=== PATIENT | male | born 1945 | race Two or more races ===

== ENCOUNTER → 2023-08-03 | Outpatient (CLI) | payer OTHER ==
[2023-08-03 09:56] LABS: Basophils # (auto) 0.1 10 ^3/uL (0-0.2); Eosinophils # (auto) 0.1 10 ^3/uL (0-0.8); Eosinophils % (auto) 1.5 % (0.0-7.0); Hematocrit 43.8 % (41.0-53.0); Hemoglobin 14.8 g/dL (13.5-17.5); Lymphocytes # (auto) 1.5 10 ^3/uL (0.4-5.4); Lymphocytes % (auto) 24.6 % (10.0-50.0); Mean Corpuscular Hemoglobin 29.2 pg (28.0-32.0); Mean Corpuscular Hgb Conc. 33.8 g/dL (32.0-36.0); Mean Corpuscular Volume 86.2 fL (80.0-100.0); Monocytes # (auto) 0.3 10 ^3/uL (0-1.3); Monocytes % (auto) 5.9 % (0.0-12.0); Nucleated Red Blood Cells % 0.1 %; Red Blood Cells 5.08 10^6/uL (4.5-5.90); Red Cell Distribution Width 13.3 % (11.8-14.3); White Blood Cell 5.9 10^3/uL (4.4-10.8)
[2023-08-03 10:17] LABS: Urine Bacteria NONE SEEN /hpf (None Seen); Urine Blood Negative /uL (Negative); Urine Clarity Clear (Clear); Urine Color Colorless (Yellow); Urine Protein, UAD 1+ (Negative); Urine Specific Gravity 1.032 (1.001-1.035); Urine Urobilinogen Normal (Negative); Urine WBC 20 /hpf (0 - 3)
[2023-08-03 11:21] LABS: Prostate Specific Antigen 0.78 ng/mL (0.0-4.0)
[2023-08-03 11:25] LABS: Folate (Folic Acid) 17.22 ng/mL (>5.38)
[2023-08-03 11:58] LABS: Alanine Aminotransferase 16 U/L (7-40); Albumin 4.2 g/dL (3.2-4.8); Alkaline Phosphatase 142 U/L (46-116); Anion Gap 9 (5-15); Aspartate Aminotransferase 11 U/L (13-40); BUN/Creatinine Ratio 12.4 (10.0-20.0); Blood Urea Nitrogen 14 mg/dL (9-23); Calcium 8.9 mg/dL (8.7-10.4); Carbon Dioxide 24 mmol/L (20-30); Chloride 99 mmol/L (98-107); Magnesium 1.8 mg/dL (1.6-2.6); Potassium 4.3 mmol/L (3.5-5.1); Sodium 132 mmol/L (136-145); Uric Acid 4.6 mg/dL (3.7-9.2)
[2023-08-03 11:59] LABS: Bilirubin, Total 1.4 mg/dL (0.2-1.0); Total Protein 7.2 g/dL (5.7-8.2)
[2023-08-03 13:19] LABS: Glucose 456 mg/dL (74-106)
[2023-08-03 13:52] LABS: LDL Cholesterol 113 mg/dL (< 100); Triglycerides 301 mg/dL (< 150)
[2023-08-03 13:54] LABS: Cholesterol 188 mg/dL (< 200); HDL Cholesterol 32 mg/dL (40-59)
== END | disposition home or self-care (01) ==
LOC: LAB 09:39
PROVIDERS: ATTEND Internal Medicine
DX: E61.2 Magnesium deficiency (principal); R78.89 Finding of other specified substances, not normally found in blood; R68.89 Other general symptoms and signs; R82.90 Unspecified abnormal findings in urine; R82.79 Other abnormal findings on microbiological examination of urine; D51.9 Vitamin B12 deficiency anemia, unspecified; R82.991 Hypocitraturia; E85.9 Amyloidosis, unspecified; E79.0 Hyperuricemia without signs of inflammatory arthritis and tophaceous disease; R94.6 Abnormal results of thyroid function studies
CPT/HCPCS: 36415; 80053; 80061; 81001; 82306; 82607; 82746; 83036; 83735; 84153; 84443; 84550; 85025; 87086

== ENCOUNTER → 2023-11-24 | Outpatient (CLI) | payer OTHER ==
[~2023-11-24] MED LIST: AMLO1TAB22 PO; METF-372 PO; OME20T PO; TRAZ-228 PO
[2023-11-24 09:21] LABS: Urine Bacteria None Seen /hpf (None Seen)
[2023-11-24 09:25] LABS: Basophils # (auto) 0 10 ^3/uL (0-0.2); Basophils % (auto) 0.7 % (0.0-2.0); Eosinophils # (auto) 0.1 10 ^3/uL (0-0.8); Eosinophils % (auto) 2.2 % (0.0-7.0); Hemoglobin 13.5 g/dL (13.5-17.5); Lymphocytes # (auto) 1.6 10 ^3/uL (0.4-5.4); Lymphocytes % (auto) 24.9 % (10.0-50.0); Mean Corpuscular Hemoglobin 29.1 pg (28.0-32.0); Mean Corpuscular Hgb Conc. 33.8 g/dL (32.0-36.0); Mean Corpuscular Volume 86.3 fL (80.0-100.0); Monocytes # (auto) 0.4 10 ^3/uL (0-1.3); Monocytes % (auto) 6.6 % (0.0-12.0); Neutrophils # (auto) 4.2 10 ^3/uL (1.6-8.6); Neutrophils % (auto) 65.6 % (37.0-80.0); Nucleated Red Blood Cells % 0.1 %; Red Blood Cells 4.64 10^6/uL (4.5-5.90); Red Cell Distribution Width 14.3 % (11.8-14.3); White Blood Cell 6.4 10^3/uL (4.4-10.8)
[2023-11-24 09:35] LABS: Urine Blood Negative /uL (Negative); Urine Clarity Clear (Clear); Urine Color Light-Yellow (Yellow); Urine Protein, UAD 1+ (Negative); Urine Specific Gravity 1.014 (1.001-1.035); Urine Urobilinogen Normal (Negative); Urine WBC <1 /hpf (0 - 3)
[2023-11-24 10:14] LABS: Alanine Aminotransferase 13 U/L (7-40); Albumin 4.1 g/dL (3.2-4.8); Alkaline Phosphatase 73 U/L (46-116); Anion Gap 6 (5-15); Aspartate Aminotransferase 19 U/L (13-40); BUN/Creatinine Ratio 15.1 (10.0-20.0); Blood Urea Nitrogen 14 mg/dL (9-23); Calcium 9.4 mg/dL (8.5-10.1); Carbon Dioxide 28 mmol/L (20-30); Chloride 105 mmol/L (98-107); Cholesterol 164 mg/dL (< 200); Glucose 202 mg/dL (74-106); HDL Cholesterol 36 mg/dL (40-59); LDL Cholesterol 102 mg/dL (< 100); Potassium 4.3 mmol/L (3.5-5.1); Sodium 139 mmol/L (136-145); Triglycerides 180 mg/dL (< 150)
[2023-11-24 10:15] LABS: Bilirubin, Total 1.1 mg/dL (0.2-1.0); Total Protein 6.9 g/dL (5.7-8.2)
[2023-11-24 11:02] LABS: Magnesium 1.6 mg/dL (1.6-2.6)
[2023-11-24 11:42] LABS: Folate (Folic Acid) 17.28 ng/mL (>5.38)
== END | disposition home or self-care (01) ==
LOC: LAB 09:09
PROVIDERS: ATTEND Internal Medicine
DX: E79.0 Hyperuricemia without signs of inflammatory arthritis and tophaceous disease (principal); R82.90 Unspecified abnormal findings in urine; D51.9 Vitamin B12 deficiency anemia, unspecified; R82.79 Other abnormal findings on microbiological examination of urine; E55.9 Vitamin D deficiency, unspecified; R94.6 Abnormal results of thyroid function studies; E61.2 Magnesium deficiency; R73.09 Other abnormal glucose; R68.89 Other general symptoms and signs; E78.5 Hyperlipidemia, unspecified
CPT/HCPCS: 36415; 80053; 80061; 81001; 82607; 82746; 83036; 83735; 84443; 84550; 85025; 87086

== ENCOUNTER → 2024-01-06 | Outpatient (CLI) | payer OTHER ==
[2024-01-06 09:36] LABS: Folate (Folic Acid) 17.49 ng/mL (>5.38)
[2024-01-06 09:37] LABS: Alanine Aminotransferase 19 U/L (7-40); Albumin 4.3 g/dL (3.2-4.8); Alkaline Phosphatase 77 U/L (46-116); Anion Gap 3 (5-15); Aspartate Aminotransferase 14 U/L (13-40); Bilirubin, Total 1.3 mg/dL (0.2-1.0); Blood Urea Nitrogen 20 mg/dL (9-23); Calcium 9.7 mg/dL (8.5-10.1); Carbon Dioxide 35 mmol/L (20-30); Chloride 104 mmol/L (98-107); Cholesterol 166 mg/dL (< 200); Glucose 86 mg/dL (74-106); HDL Cholesterol 38 mg/dL (40-59); LDL Cholesterol 115 mg/dL (< 100); Potassium 3.5 mmol/L (3.5-5.1); Sodium 142 mmol/L (136-145); Triglycerides 153 mg/dL (< 150)
[2024-01-06 11:14] LABS: Uric Acid 6.8 mg/dL (3.7-9.2)
== END | disposition home or self-care (01) ==
LOC: LAB 08:44
PROVIDERS: ATTEND Internal Medicine
DX: I12.9 Hypertensive chronic kidney disease with stage 1 through stage 4 chronic kidney disease, or unspecified chronic kidney disease (principal); E11.22 Type 2 diabetes mellitus with diabetic chronic kidney disease; N18.30 Chronic kidney disease, stage 3 unspecified; E11.65 Type 2 diabetes mellitus with hyperglycemia
CPT/HCPCS: 36415; 80053; 80061; 82306; 82607; 82746; 83036; 84443; 84550

== ENCOUNTER → 2024-08-19 | Outpatient (CLI) | payer OTHER ==
[2024-08-19 08:21] LABS: Urine Bacteria None Seen /hpf (None Seen)
[2024-08-19 08:40] LABS: Basophils # (auto) 0 10 ^3/uL (0-0.2); Basophils % (auto) 0.5 % (0.0-2.0); Eosinophils # (auto) 0.1 10 ^3/uL (0-0.8); Eosinophils % (auto) 1.2 % (0.0-7.0); Hematocrit 40.1 % (41.0-53.0); Lymphocytes # (auto) 1.7 10 ^3/uL (0.4-5.4); Lymphocytes % (auto) 24.3 % (10.0-50.0); Mean Corpuscular Hemoglobin 29.8 pg (28.0-32.0); Mean Corpuscular Hgb Conc. 34.9 g/dL (32.0-36.0); Mean Corpuscular Volume 85.3 fL (80.0-100.0); Monocytes # (auto) 0.5 10 ^3/uL (0-1.3); Monocytes % (auto) 7.3 % (0.0-12.0); Neutrophils # (auto) 4.6 10 ^3/uL (1.6-8.6); Neutrophils % (auto) 66.7 % (37.0-80.0); Nucleated Red Blood Cells % 0.1 %; Platelet Count (auto) 176 10^3/uL (140-450); Red Blood Cells 4.71 10^6/uL (4.5-5.90); Red Cell Distribution Width 13.6 % (11.8-14.3); White Blood Cell 6.8 10^3/uL (4.4-10.8)
[2024-08-19 08:47] LABS: Urine Blood Negative /uL (Negative); Urine Clarity Clear (Clear); Urine Color Light-Yellow (Yellow); Urine Protein, UAD 1+ (Negative); Urine Specific Gravity 1.013 (1.001-1.035); Urine Squamous Epithelial Cell FEW /hpf (<5); Urine Urobilinogen Normal (Negative); Urine WBC < 1 /HPF (0-3); Urine pH 7.5 (5.0-9.0)
[2024-08-19 09:32] LABS: Triglycerides 149 mg/dL (< 150)
[2024-08-19 09:34] LABS: Cholesterol 166 mg/dL (< 200); HDL Cholesterol 37 mg/dL (40-59); LDL Cholesterol 110 mg/dL (< 100)
[2024-08-19 10:27] LABS: T3 Total 1.32 ng/mL (0.60-1.81)
[2024-08-19 10:28] LABS: Folate (Folic Acid) 11.83 ng/mL (>5.38)
[2024-08-22 09:02] LABS: Hepatitis B Surface Antigen Negative (Negative)
[2024-08-22 09:19] LABS: Hepatitis A Ab IgM Negative; Hepatitis B Core IgM Negative (Negative); Hepatitis C Antibody Negative (Negative)
== END | disposition home or self-care (01) ==
LOC: LAB 08:03
PROVIDERS: ATTEND Internal Medicine
DX: E61.2 Magnesium deficiency (principal); D51.9 Vitamin B12 deficiency anemia, unspecified; E55.9 Vitamin D deficiency, unspecified; E78.49 Other hyperlipidemia; E79.0 Hyperuricemia without signs of inflammatory arthritis and tophaceous disease; R73.09 Other abnormal glucose; R68.89 Other general symptoms and signs; R94.6 Abnormal results of thyroid function studies; R82.90 Unspecified abnormal findings in urine; R82.998 Other abnormal findings in urine; R53.1 Weakness
CPT/HCPCS: 36415; 80061; 80074; 81001; 82306; 82607; 82746; 83036; 84480; 85025; 87086

== ENCOUNTER 2025-03-02 16:48 | Inpatient (IN) | payer OTHER ==
[~2025-03-02] VITALS: Ht 177.8 cm; Wt 84.5 kg
--- NOTE | 2025-03-02 17:17 | ED.PDOC ---
HPI Comments 80y M who presents to the ED via EMS for chief complaint of chest pain. Per EMS, pt is resident at [facility], where facility and staff called after pt stated he has been having chest pain for the past hour and EMS was called to the scene. EMS arrived and pt states he has been having L sided chest pain, radiating to the back, with noted exacerbation of pain with swallowing and no relieving factors. EMS states pt had vitals checked and noted pt BP was fluctuating from systolic values from 180's to 70's, with all other vitals in normal range. Arrival to ED, patient denies any chest pain and states he is now feeling better. He denies feeling short of breath, nausea, vomiting, diaphoresis or edema. Pt son arrived to the ED and stated the facility had contacted him earlier today advising him that the patient's blood glucose was running high. Pt in the ED, has noted BP of 187/69, heart rate 108 but otherwise stable vitals with temp of 98.2 F, rr 15 and 02 sat of 97% on room air. Pt has noted history of HTN and DM with noted ED accu check of 305. Pt otherwise de nies any other symptoms at this time. 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 Allergies: Coded Allergies: NO KNOWN ALLERGIES (Unverified , 11/01/23) Home Meds Reported Medications Amlodipine Besylate (Amlodipine Besylate) 5 Mg Tab, 1 TAB PO DAILY, #30 TAB 5 Refills 11/01/23 Trazodone Hcl (Trazodone Hcl) 100 Mg Tab, 1 TAB PO QPM, #30 TAB 1 Refill 11/01/23 Omeprazole (Omeprazole) 20 Mg Cap, 20 MG PO, CAP 11/01/23 Metformin Hydrochloride (Metformin Hcl) 1,000 Mg Tab, 1 TAB PO BID, #60 TAB 5 Refills 11/01/23 Information Source: Patient, Emergency Med Personnel Mode of Arrival: EMS Brought in by: EMS Past Medical History PAST MEDICAL HISTORY: Dementia, DM, HTN Family History Family History: Family hx of Cancer Social History Smoker: Non-Smoker Alcohol: Denies ETOH Use Drugs: Denies Drug Use Lives In: Home Constitutional: denies: chills, diaphoresis, fatigue, fever, malaise, sweats, weakness, others EENTM: denies: blurred vision, double vision, ear bleeding, ear discharge, ear drainage, ear pain, ear ringing, eye pain, eye redness, hearing loss, mouth pain, mouth swelling, nasal discharge, nose bleeding, nose congestion, nose pain, photophobia, tearing, throat pain, throat swelling, voice changes, others Respiratory: denies: cough, hemoptysis, orthopnea, SOB at rest, shortness of breath, SOB with excertion, stridor, wheezing, others Cardiovascular: reports: chest pain; denies: dizzy spells, diaphoresis, Dyspnea on exertion, edema, irregular heart beat, left arm pain, lightheadedness, palpitations, PND, syncope, others Gastrointestinal: denies: abdomen distended, abdominal pain, blood streaked bowels, constipated, diarrhea, dysphagia, difficulty swallowing, hematemesis, melena, nausea, poor appetite, poor fluid intake, rectal bleeding, rectal pain, vomiting, others Genitourinary: denies: burning, dysuria, flank pain, frequency, hematuria, incontinence, penile discharge, penile sore, pain, testicle pain, testicle swelling, urgency, others Neurological: denies: dizziness, fainting, headache, left sided numbness, left sided weakness, numbness, paresthesia, pre-existing deficit, right sided numbness, right sided weakness, seizure, speech problems, tingling, tremors, weakness, others Musculoskeletal: denies: back pain, gout, joint pain, joint swelling, muscle pain, muscle stiffness, neck pain, others Integumetry: denies: bruises, change in color, change in hair/nails, dryness, laceration, lesions, lumps, rash, wounds, others Allergic/Immunocompromised: denies: Difficulty Healing, Frequent Infections, Hives, Itching, others Hematologic/Lymphatic: denies: anemia, blood clots, easy bleeding, easy bruising, swollen glands, others Endocrine: denies: excessive hunger, excessive sweating, excessive thirst, excessive urination, flushing, intolerance to cold, intolerance to heat, unexplained weight gain, unexplained weight loss, others Psychiatric: denies: anxiety, bipolar disorder, depression, hopeless, panic disorder, schizophrenia, sleepless, suicidal, others All Other Systems: Reviewed and Negative Physical Exam General Appearance: No Apparent Distress HEENT: Other (Pupils and face symmetric. Moist mucous membranes.) Neck: Full Range of Motion, Normal Inspection Respiratory: Lungs Clear, No Accessory Muscle Use, No Respiratory Distress, Normal Breath Sounds Cardiovascular: No Edema, No JVD, Tachycardia Breast Exam: Deferred Gastrointestinal: Non Tender, Soft Genitalia: Deferred Pelvic: Deferred Rectal: Deferred Extremities: Normal inspection, Normal range of motion, Non-tender, No pedal edema Neurologic: Alert (Oriented x3), Normal Affect, Normal Mood, Other (No gross focal deficit) Cerebellar Function: NOT DONE Reflexes: NOT DONE Skin: Dry, Normal Color, Warm Lymphatic: NOT DONE EKG EKG : Comments Sinus tach, rate 102, normal intervals, left axis deviation, possible old inferior or anteroseptal infarct, baseline artifact vs nonspecific T change. Was a procedure done? Was a procedure done?: No CP Differential Dx Differential Diagnosis: Angina, Anxiety / Panic Attack, Electrolyte Disorder, Heart Failure, UT, Pulmonary Embolus Differential Diagnosis: HTN Essential, HTN Accelerated Differential Diagnosis: Aortic dissection, Chest Wall Pain, Esophageal reflux/spasm, Gastritis, Pericarditis, Pneumonia X-Ray, Labs, Meds, VS Vital Signs Date Time Temp Pulse Resp B/P (MAP) Pulse Ox O2 Delivery O2 Flow Rate FiO2 03/02/25 21:31 97.8 86 16 147/86 (106) 95 97.8 03/02/25 18:19 106 15 97 Room Air* 0 21 03/02/25 17:38 141/80 (100) 03/02/25 17:37 141/80 03/02/25 16:58 98.2 108 15 187/69 97 98.2 03/02/25 16:55 102 Lab Test 03/02/25 18:36 03/02/25 17:21 Range/Units Troponin I High Sensitivity 3 L 4 </=54 ng/L White Blood Count 5.9 4.4-10.8 10^3/uL Red Blood Count 4.72 4.5-5.90 10^6/uL Hemoglobin 14.1 13.5-17.5 g/dL Hematocrit 39.7 L 41.0-53.0 % Mean Corpuscular Volume 84.2 80.0-100.0 fL Mean Corpuscular Hemoglobin 29.9 28.0-32.0 pg Mean Corpuscular Hemoglobin Concent 35.5 32.0-36.0 g/dL Red Cell Distribution Width 13.2 11.8-14.3 % Platelet Count 187 140-450 10^3/uL Mean Platelet Volume 7.7 6.9-10.8 fL Neutrophils (%) (Auto) 55.1 37.0-80.0 % Lymphocytes (%) (Auto) 32.7 10.0-50.0 % Monocytes (%) (Auto) 8.4 0.0-12.0 % Eosinophils (%) (Auto) 3.0 0.0-7.0 % Basophils (%) (Auto) 0.8 0.0-2.0 % Neutrophils # (Auto) 3.3 1.6-8.6 10 ^3/uL Lymphocytes # (Auto) 1.9 0.4-5.4 10 ^3/uL Monocytes # (Auto) 0.5 0-1.3 10 ^3/uL Eosinophils # (Auto) 0.2 0-0.8 10 ^3/uL Basophils # (Auto) 0 0-0.2 10 ^3/uL Nucleated Red Blood Cells 0.1 % Sodium Level 137 136-145 mmol/L Potassium Level 3.4 L 3.5-5.1 mmol/L Chloride Level 97 L 98-107 mmol/L Carbon Dioxide Level 30 20-31 mmol/L Anion Gap 10 5-15 Blood Urea Nitrogen 16 9-23 mg/dL Creatinine 1.09 0.700-1.30 mg/dL Glomerular Filtration Rate Calc 69 >90 mL/min BUN/Creatinine Ratio 14.7 10.0-20.0 Serum Glucose 264 H 74-106 mg/dL Calcium Level 9.2 8.7-10.4 mg/dL B-Type Natriuretic Peptide 8.16 0-100 pg/mL [address] [address] Ph: [phone] DIAGNOSTIC IMAGING Diagnostic Imaging Report : [id number] Signed PATIENT: DON PEREIRA ACCT: [id number] UNIT: [id number] : 1945 LOC: ER ROOM / BED: / AGE / SEX: 80 / M ADM STATUS: REG ER SERVICE 1700 ORDERING PHYSICIAN: PRITESH HARPER MD PROCEDURE(s): CXRP - CHEST PORTABLE REASON: cp ORDER NUMBER(s): [id number], ACCESSION NUMBER(s): [id number] CHEST RADIOGRAPH Indication: cp Technique: Single frontal view of the chest was obtained Comparison: None FINDINGS: Lines and Tubes: None Lungs: No focal consolidation. Pleura: No effusion. No pneumothorax. Cardiomediastinal contours: Unremarkable Bones: No acute osseous abnormality. IMPRESSION: 1. No acute cardiopulmonary disease. ATED BY: MAYLIN PÉREZ Jr., DO DICTATED DATE/TIME: 03/02/251900 SIGNED BY: MAYLIN PÉREZ Jr., SIGNED DATE/TIME: 03/02/251900 CC: X-Ray, Labs, Meds, VS Comment 80-year-old male with a history of hypertension, diabetes and dementia brought in by EMS complaining of chest pain Vitals remarkable for heart rate 108, BP 187/69 Exam remarkable for mild tachycardia Rhythm strip independently interpreted by me: Sinus tach, rate 102, no ectopy. Chest x-ray remarkable CBC unremarkable, basic metabolic panel remarkable for potassium 3.4, glucose 264, BNP and 2 serial troponins negative Patient treated with the following in the ED: Aspirin 325 mg p.o., nitro bid 1/2 inch to chest wall, effervescent potassium 50 mEq p.o. On re-evaluation, patient states he is chest pain-free. Blood pressure is 141/80, heart rate is still 106. Plan is to admit the patient for ongoing serial troponins and Cardiology evaluation. Time of 1ST Reevaluation: 19:24 Reevaluation 1ST: Improved Patient Education/Counseling: Diagnosis, Treatment Family Education/Counseling: No Family Present SEPSIS Sepsis Screen SEPSIS EXCLUSION NOTE: Sepsis Exclusion Note: Patient presents with SIRS criteria, but the SIRS response is attributed to [chest pain, discomfort or anxiety ], not a suspected infection. Sepsis bundle is not initiated at this time, due to this reason. Further management will focus on the treatment of the above condition (s). Physician Orders Chest Portable (03/02/25 17:00) Vital Signs Date Time Temp Pulse Resp B/P (MAP) Pulse Ox O2 Delivery O2 Flow Rate FiO2 03/02/25 21:31 97.8 86 16 147/86 (106) 95 97.8 03/02/25 18:19 106 15 97 Room Air* 0 21 03/02/25 17:38 141/80 (100) 03/02/25 17:37 141/80 03/02/25 16:58 98.2 108 15 187/69 97 98.2 03/02/25 16:55 102 Laboratory Tests Test 03/02/25 17:21 White Blood Count 5.9 10^3/uL (4.4-10.8) Departure 1 Departure Time of Disposition: 19:26 Impression: Primary Impression: Chest pain with high risk for cardiac etiology Additional Impressions: Tachycardia Hyperglycemia Disposition: ADMITTED INPATIENT Admit to: Tele Condition: Guarded Critical Care Note Critical Care Time?: No Stability Stability form required: No Heart Score Heart Score: Heart Score Response (Comments) Value History Moderate Suspicious 1 EKG Repolarization Disturb 1 Age >65 2 Risk Factors 1 or 2 risk factors 1 Troponin Normal limit 0 Total 5 I personally scribed for PRITESH HARPER MD ([email or web address]) on 03/02/25 at 17:17. Electronically submitted by Checo Sandoval ([facility] I personally scribed for PRITESH HARPER MD ([email or web address]) on 03/02/25 at 18:10. Electronically submitted by Checo Sandoval ([facility] I personally scribed for PRITESH HARPER MD ([email or web address]) on 03/02/25 at 19:11. Electronically submitted by Checo Sandoval ([facility] PRITESH HARPER MD Mar 02, 2025 17:17
[2025-03-02] MEDS: NITROGLYCERIN 2% OINT 1GM PKG TD ONE (17:37)
[2025-03-02 17:45] LABS: Hematocrit 39.7 % (41.0-53.0); Hemoglobin 14.1 g/dL (13.5-17.5); Mean Corpuscular Hemoglobin 29.9 pg (28.0-32.0); Mean Corpuscular Volume 84.2 fL (80.0-100.0); Nucleated Red Blood Cells % 0.1 %
[2025-03-02 17:49] LABS: Sodium 137 mmol/L (136-145)
[2025-03-02 17:50] LABS: Anion Gap 10 (5-15); Calcium 9.2 mg/dL (8.7-10.4); Carbon Dioxide 30 mmol/L (20-31)
[2025-03-02 17:55] LABS: BUN/Creatinine Ratio 14.7 (10.0-20.0); Blood Urea Nitrogen 16 mg/dL (9-23)
[2025-03-02 18:05] LABS: Chloride 97 mmol/L (98-107); Glucose 264 mg/dL (74-106); Potassium 3.4 mmol/L (3.5-5.1)
[2025-03-02 18:19] VITALS: PULSE 106; RESP 15; O2SAT 97
--- NOTE | 2025-03-02 18:30 | ECG ---
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
--- NOTE | 2025-03-02 19:03 | DVH ---
CHEST RADIOGRAPH Indication: cp Technique: Single frontal view of the chest was obtained Comparison: None FINDINGS: Lines and Tubes: None Lungs: No focal consolidation. Pleura: No effusion. No pneumothorax. Cardiomediastinal contours: Unremarkable Bones: No acute osseous abnormality. IMPRESSION: 1. No acute cardiopulmonary disease.
[2025-03-02] MEDS ORDERED: SODIUM CHLORIDE 0.9% 1,000 ML IV ONE (19:30)
[2025-03-02] MEDS ORDERED: MORPHINE SULFATE INJ 2 MG/ml SYRG IV PRN (22:30)
[2025-03-02] MEDS ORDERED: NITROGLYCERIN 0.4 MG SL TAB SL PRN (22:30)
--- NOTE | 2025-03-02 23:00 | DVHHPRES ---
History of Present Illness Resident Creating Document: ALEXA TRACEY RESIDENT History of Present Illness 80-year-old male with dementia, living in [facility], presents to the ER with the complaints of chest pain. The patient was accompanied by son and [id number]. According to their history, the facility staff noticed the patient having chest pain for an hour and EMS was called. The patient reports he has been having left-sided chest pain, radiating to the back. With exacerbation of the pain while eating. No relieving factors. Patient reports having a right-sided neck swelling (behind sternocleidomastoid) associated with pain rating 7/10. He denies any shortness of breath, fever, abdominal pain, nausea, vomiting or any other complaints. Past medical history: Diabetes mellitus, hypertension, colon cancer Past surgical history: Left index finger amputation, colectomy 5 years ago Smoking history: None Alcohol: None Drugs: None Allergies: None Home medications: Amlodipine, omeprazole, metformin, trazodone, chlorhexidine rinse, chlorthalidone, glipizide, memantine, metformin, naproxen, omeprazole, insulin degludec, antacid, clonazepam, docusate sodium, tramadol, milk of magnesia suspension Family history: Noncontributory Code status: Full code (son is the healthcare proxy) Review of Systems Cardiovascular: Chest Pain Musculoskeletal: neck pain Allergies: Coded Allergies: NO KNOWN ALLERGIES (Unverified , 11/01/23) Medications Current Medications Medications Dose Ordered Sig/Liyah Route Start Time Stop Time Status Last Admin Dose Admin Nitroglycerin 0.4 mg Q5MINP PRN SL 03/02/25 22:30 Morphine Sulfate 2 mg Q30M PRN IV 03/02/25 22:30 Exam Vital Signs Vital Signs Date Time Temp Pulse Resp B/P (MAP) Pulse Ox O2 Delivery O2 Flow Rate FiO2 03/02/25 21:31 97.8 86 16 147/86 (106) 95 97.8 03/02/25 18:19 Room Air* 0 21 Exam Pt is lying on bed General Appearance: Alert, Oriented X2, Cooperative, Mild distress HEENT: Atraumatic, Mucous membranes moist/pink, posterior cervical chain lymphadenopathy, tender and fixed Respiratory: Clear to auscultation, Normal air movement, No added sounds Cardiovascular: Regular rate, Normal S1, Normal S2, No murmurs Abdominal/ : Active bowel sounds, Soft, no distention, no tenderness Extremities: No edema, Normal pulses, No tenderness/swelling Skin: No Significant rash, except past surgical scars Neuro: Normal speech, sensorimotor deficits none Psych/Mental Status: Confused, Mood NL Nurse was there as senior computer specialist during examination Labs/Xrays Labs Test 03/02/25 18:36 03/02/25 17:21 Range/Units Troponin I High Sensitivity 3 L </=54 ng/L White Blood Count 5.9 4.4-10.8 10^3/uL Red Blood Count 4.72 4.5-5.90 10^6/uL Hemoglobin 14.1 13.5-17.5 g/dL Hematocrit 39.7 L 41.0-53.0 % Mean Corpuscular Volume 84.2 80.0-100.0 fL Mean Corpuscular Hemoglobin 29.9 28.0-32.0 pg Mean Corpuscular Hemoglobin Concent 35.5 32.0-36.0 g/dL Red Cell Distribution Width 13.2 11.8-14.3 % Platelet Count 187 140-450 10^3/uL Mean Platelet Volume 7.7 6.9-10.8 fL Neutrophils (%) (Auto) 55.1 37.0-80.0 % Lymphocytes (%) (Auto) 32.7 10.0-50.0 % Monocytes (%) (Auto) 8.4 0.0-12.0 % Eosinophils (%) (Auto) 3.0 0.0-7.0 % Basophils (%) (Auto) 0.8 0.0-2.0 % Neutrophils # (Auto) 3.3 1.6-8.6 10 ^3/uL Lymphocytes # (Auto) 1.9 0.4-5.4 10 ^3/uL Monocytes # (Auto) 0.5 0-1.3 10 ^3/uL Eosinophils # (Auto) 0.2 0-0.8 10 ^3/uL Basophils # (Auto) 0 0-0.2 10 ^3/uL Nucleated Red Blood Cells 0.1 % Sodium Level 137 136-145 mmol/L Potassium Level 3.4 L 3.5-5.1 mmol/L Chloride Level 97 L 98-107 mmol/L Carbon Dioxide Level 30 20-31 mmol/L Anion Gap 10 5-15 Blood Urea Nitrogen 16 9-23 mg/dL Creatinine 1.09 0.700-1.30 mg/dL Glomerular Filtration Rate Calc 69 >90 mL/min BUN/Creatinine Ratio 14.7 10.0-20.0 Serum Glucose 264 H 74-106 mg/dL Calcium Level 9.2 8.7-10.4 mg/dL B-Type Natriuretic Peptide 8.16 0-100 pg/mL SEPSIS Sepsis Screen Date sepsis recognized/suspect: Mar 02, 2025 Time Sepsis recognized/suspect: 1657 Recent Procedure: No On Antibiotic Therapy: No Respiratory Rate >20: No Heart Rate >90: Yes Temp<36 C (96.8 F) or >38.3 C: No SBP <90 or MAP <65 mmHG: No New Acute Mental Status Change: No Is the patient on CPAP, BIPAP,: No Physician Orders Chest Portable (03/02/25 17:00) Admit (03/02/25 22:20) Allergies (03/02/25 22:20) Complete Blood Count (03/03/25 04:00) Comprehensive Metabolic Panel (03/03/25 04:00) Nitroglycerin Sublingual (Ntrostat Subli (03/02/25 22:30) Morphine Sulfate Injection (03/02/25 22:30) Oxygen By Nasal Cannula (03/02/25 22:20) Stat Ekg For Chest Pain (03/02/25 22:20) Notify Md Of Changes From Base (03/02/25 22:20) Scheduling Specialist For 24 Hours (03/02/25 22:20) Emergency Dysrhythmia Protocol (03/02/25 22:20) Rhythm Strips Once Every Shift (03/02/25 22:20) Vital Signs Date Time Temp Pulse Resp B/P (MAP) Pulse Ox O2 Delivery O2 Flow Rate FiO2 03/02/25 21:31 97.8 86 16 147/86 (106) 95 97.8 03/02/25 18:19 106 15 97 Room Air* 0 21 03/02/25 17:38 141/80 (100) 03/02/25 17:37 141/80 03/02/25 16:58 98.2 108 15 187/69 97 98.2 03/02/25 16:55 102 Laboratory Tests Test 03/02/25 17:21 White Blood Count 5.9 10^3/uL (4.4-10.8) Medications Medications Dose Ordered Sig/Liyah Route Start Time Stop Time Status Last Admin Dose Admin Aspirin 325 mg ONCE ONCE PO 03/02/25 17:00 03/02/25 17:02 DC 03/02/25 18:12 325 MG Assessment/Plan Assessment/Plan Chest pain rule out ACS -telemetry monitoring -EKG: No acute ischemic changes -Troponin negative -Chest pain protocol -Aspirin, Morphine and nitroglycerin given -chest x-ray: No acute cardiopulmonary disease -BNP normal Altered mental status due to metabolic encephalopathy/infection Serum glucose 264 Hypokalemia WBC normal Order lactate Cervical lymphadenopathy, posterior chain due to infect ion/malignancy/inflammatory CT scan of the soft tissue neck ordered Uncontrolled diabetes HbA1c ordered Started Moderate insulin sliding scale Uncontrolled hypertension Continue home medicines amlodipine Nitroglycerin Hypokalemia Potassium 3.4 Was repleted with 50 mg potassium tablet once GI prophylaxis: Pantoprazole DVT prophylaxis: SCDs Diet: Cardiac Goals of care discussed with the patient for more than 27 minutes: Full code status Case discussed with Dr. Flowers, patient and RN Plan discussed with: Patient, Son, Other (Daughter in-law, R.N.) My Orders Orders - ALEXA TRACEY Procedure Category Date Status Time Admit ADMIT 03/02/25 Transmitted 22:20 Allergies LUIS ARMANDO 03/02/25 In Process 22:20 Complete Blood Count LAB 03/03/25 Verified 04:00 Comprehensive LAB 03/03/25 Verified Metabolic Panel 04:00 Nitroglycerin PHA 03/02/25 In Process Sublingual (Ntrostat 22:30 Morphine Sulfate PHA 03/02/25 In Process Injection 22:30 Oxygen By Nasal RT 03/02/25 Transmitted Cannula 22:20 Stat Ekg For Chest LUIS ARMANDO 03/02/25 In Process Pain 22:20 Notify Md Of Changes LUIS ARMANDO 03/02/25 In Process From Base 22:20 Scheduling Specialist For LUIS ARMANDO 03/02/25 In Process 24 Hours 22:20 Emergency Dysrhythmia LUIS ARMANDO 03/02/25 In Process Protocol 22:20 Rhythm Strips Once LUIS ARMANDO 03/02/25 In Process Every Shift 22:20 Common Visit Codes: 39196-RGMMONF INP/OBS CARE (HIGH) Secondary Visit Codes: 66551-JPGPXZYV CARE PLAN 30 MINUTES ALEXA TRACEY Mar 02, 2025 23:00
[2025-03-02] MEDS: POTASSIUM EFFERVESENT TAB 25 MEQ PO ONE (23:04)
[2025-03-03] MEDS ORDERED: DEXTROSE (50%) 50ML SYRG IV PRN (00:15)
[2025-03-03 01:28] VITALS: BP 187/97; PULSE 85; RESP 20; TEMP 97.8; O2SAT 98
[2025-03-03] MEDS ORDERED: ACCU-CHEK COMFORT CURVE STRIP VI SCH (06:00)
[2025-03-03] MEDS ORDERED: InsuLIN REG 1unit/0.01ml Soln (100units/ml) SC SCH (06:00)
--- NOTE | 2025-03-03 07:01 | DVHDSRES ---
Discharge Summary Date of Admission Resident Creating Document: ALEXA TRACEY Mar 02, 2025 at 22:20 Date of Discharge: Mar 03, 2025 Admitting Diagnosis Chest pain rule out ACS Labs/Diagnostic Data: Laboratory Results Test 03/03/25 01:09 03/02/25 18:36 03/02/25 17:21 POC Glucose 180 mg/dl (70-106) Troponin I High Sensitivity 3 ng/L (</=54) White Blood Count 5.9 10^3/uL (4.4-10.8) Red Blood Count 4.72 10^6/uL (4.5-5.90) Hemoglobin 14.1 g/dL (13.5-17.5) Hematocrit 39.7 % (41.0-53.0) Mean Corpuscular Volume 84.2 fL (80.0-100.0) Mean Corpuscular Hemoglobin 29.9 pg (28.0-32.0) Mean Corpuscular Hemoglobin Concent 35.5 g/dL (32.0-36.0) Red Cell Distribution Width 13.2 % (11.8-14.3) Platelet Count 187 10^3/uL (140-450) Mean Platelet Volume 7.7 fL (6.9-10.8) Neutrophils (%) (Auto) 55.1 % (37.0-80.0) Lymphocytes (%) (Auto) 32.7 % (10.0-50.0) Monocytes (%) (Auto) 8.4 % (0.0-12.0) Eosinophils (%) (Auto) 3.0 % (0.0-7.0) Basophils (%) (Auto) 0.8 % (0.0-2.0) Neutrophils # (Auto) 3.3 10 ^3/uL (1.6-8.6) Lymphocytes # (Auto) 1.9 10 ^3/uL (0.4-5.4) Monocytes # (Auto) 0.5 10 ^3/uL (0-1.3) Eosinophils # (Auto) 0.2 10 ^3/uL (0-0.8) Basophils # (Auto) 0 10 ^3/uL (0-0.2) Nucleated Red Blood Cells 0.1 % Sodium Level 137 mmol/L (136-145) Potassium Level 3.4 mmol/L (3.5-5.1) Chloride Level 97 mmol/L (98-107) Carbon Dioxide Level 30 mmol/L (20-31) Anion Gap 10 (5-15) Blood Urea Nitrogen 16 mg/dL (9-23) Creatinine 1.09 mg/dL (0.700-1.30) Glomerular Filtration Rate Calc 69 mL/min (>90) BUN/Creatinine Ratio 14.7 (10.0-20.0) Serum Glucose 264 mg/dL (74-106) Calcium Level 9.2 mg/dL (8.7-10.4) B-Type Natriuretic Peptide 8.16 pg/mL (0-100) Other Laboratory Tests 03/02/25 17:21 Brief Hx & Hospital Course: [age] or old male with history of diabetes mellitus, hypertension and colon cancer admitted from SNF due to left sided chest pain radiating to back, worsened by eating and right-sided posterior neck swelling. Four workup/EKG with doubt acute ischemia, negative troponin, BNP normal, CXR without acute cardiopulmonary disease was done. Chest pain protocol initiated with aspirin, morphine, nitroglycerin. Noted altered mental status likely metabolic encephalopathy versus infection. Hyperglycemia, hypokalemia and uncontrolled diabetes mellitus and uncontrolled hypertension. Moderate insulin sliding scale was started. Potassium repletion was done. Continued home amlodipine and nitroglycerin for blood pressure control. CT neck soft tissue ordered for cervical lymphadenopathy. Patient and family counseled on risks of leaving prior to completion of workup including worsening symptoms, cardiac events, infection progression and . Patient and family verbalized understanding, signed AMA form. Physical examination was not done prior to AMA. Advised to follow-up and encouraged to return to ED if symptoms worsen. Operations or Procedures CXR no acute cardiopulmonary disease EKG no ischemic changes Condition at Discharge: Undetermined Final Diagnosis/Problems List Chest pain rule out ACS Hyperglycemia due to type 2 diabetes mellitus Uncontrolled hypertension Hypokalemia Altered mental status due to metabolic encephalopathy Discharge Disposition: AMA Discharge Instruct/Medications Scheduled Amlodipine Besylate (Amlodipine Besylate), 1 TAB PO DAILY, (Reported) Metformin Hydrochloride (Metformin Hcl), 1 TAB PO BID, (Reported) Trazodone Hcl (Trazodone Hcl), 1 TAB PO QPM, (Reported) Miscellaneous Medications Omeprazole (Omeprazole), 20 MG PO, (Reported) Discharge Statement: "Patient was advised to return to the ER or call 911 if any headaches, dizziness, shortness of breath, chest pain, abdominal pain, bleeding, fevers, or worsening of medical condition. Patient was counseled about treatment plan, medications, possible side effects, patientverbalized understanding. All questions were answered to the best of my ability. This discharge took greater then 30 minutes in planning, reviewing documentation, counseling the patient, and discussing with other team members." ASSESSMENT ASSESSMENT Assessment ALEXA TRACEY RESIDENT Mar 03, 2025 07:01
== END 2025-03-03 02:13 | disposition left against medical advice (07) | DRG 311 ==
LOC: ER 16:48 → EDBD 16:48 → EEVIPCON 22:20 → OVERFLOW 22:20
PROVIDERS: ATTEND Emergency Medicine
DX: I24.9 Acute ischemic heart disease, unspecified (principal); G93.41 Metabolic encephalopathy; E11.65 Type 2 diabetes mellitus with hyperglycemia; I10 Essential (primary) hypertension; F03.90 Unspecified dementia, unspecified severity, without behavioral disturbance, psychotic disturbance, mood disturbance, and anxiety; E87.6 Hypokalemia; R59.0 Localized enlarged lymph nodes; Z79.84 Long term (current) use of oral hypoglycemic drugs; Z79.899 Other long term (current) drug therapy; Z89.022 Acquired absence of left finger(s)
CPT/HCPCS: 36415; 71045; 80048; 82962; 83880; 84484; 85025; 93005; G0378

== ENCOUNTER 2025-03-22 08:35 | Outpatient (CLI) | payer OTHER ==
[2025-03-22 09:42] LABS: Hematocrit 42.0 % (41.0-53.0); Hemoglobin 14.8 g/dL (13.5-17.5); Mean Corpuscular Hemoglobin 29.7 pg (28.0-32.0); Mean Corpuscular Volume 84.3 fL (80.0-100.0); Nucleated Red Blood Cells % 0.0 %
[2025-03-22 10:03] LABS: Urine Protein, UAD 1+ (Negative)
[2025-03-22 10:45] LABS: Alanine Aminotransferase 19 U/L (7-40); Albumin 4.7 g/dL (3.2-4.8); Alkaline Phosphatase 76 U/L (46-116); Anion Gap 11 (5-15); BUN/Creatinine Ratio 13.1 (10.0-20.0); Bilirubin, Total 1.0 mg/dL (0.2-1.0); Blood Urea Nitrogen 14 mg/dL (9-23); Calcium 9.2 mg/dL (8.7-10.4); Carbon Dioxide 31 mmol/L (20-31); Cholesterol 162 mg/dL (< 200); Potassium 3.6 mmol/L (3.5-5.1); Sodium 139 mmol/L (136-145); Total Protein 7.5 g/dL (5.7-8.2)
[2025-03-22 10:46] LABS: Chloride 97 mmol/L (98-107); Glucose 109 mg/dL (74-106); HDL Cholesterol 32 mg/dL (40-59); Magnesium 1.6 mg/dL (1.6-2.6); Triglycerides 169 mg/dL (< 150)
[2025-03-22 11:52] LABS: Uric Acid 6.7 mg/dL (3.7-9.2)
== END 2025-03-22 17:00 | disposition home or self-care (01) ==
LOC: LAB 08:35
PROVIDERS: ATTEND Internal Medicine
DX: E11.9 Type 2 diabetes mellitus without complications (principal); E78.49 Other hyperlipidemia; E61.2 Magnesium deficiency; E79.0 Hyperuricemia without signs of inflammatory arthritis and tophaceous disease; E55.9 Vitamin D deficiency, unspecified; D51.9 Vitamin B12 deficiency anemia, unspecified; R82.79 Other abnormal findings on microbiological examination of urine; R82.90 Unspecified abnormal findings in urine; R82.998 Other abnormal findings in urine; R68.89 Other general symptoms and signs; R94.6 Abnormal results of thyroid function studies
CPT/HCPCS: 36415; 80053; 80061; 81001; 82306; 82607; 82746; 83036; 83735; 84443; 84480; 84550; 85025